=== PATIENT | male | born 1990 | race Caucasian/White ===

== ENCOUNTER 2020-09-23 14:59 | Emergency (ER) | payer SELFPAY ==
[~2020-09-23] VITALS: Ht 188 cm; Wt 74.8 kg
[2020-09-23 15:11] VITALS: BP 130/74
--- NOTE | 2020-09-23 15:13 | Emergency Room Report ---
History of Present Illness General Chief Complaint: Medical Clearance Source: Patient Present Illness HPI 30-year-old male with no known significant past medical history of anxiety reporting that he uses marijuana on daily basis brought in by [facility] for medical clearance. Patient was tased on the right sided anterior chest once and had already removed taser. Denies any pain, shortness of breath, headache and dizziness at this time. Patient refuses any wound care, tetanus shot, her chest x-ray is reported that he does not want to be exposed to radiation normal does he want to be medically evaluated as he is in no pain. Patient reported that he only has history of anxiety and is managed with using marijuana denies any SI and HI. Patient in no distress. Denies all URI symptoms. Denies any fall or injury, denies loss of consciousness. 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 Patient History Past Medical History: see triage record Past Surgical History: none Pertinent Family History: none Immunizations: UTD Reviewed Nursing Documentation: PMH: Agreed; PSxH: Agreed Nursing Documentation-PMH Past Medical History: No History, Except For History Of Psychiatric Problem: Yes Review of Systems All Other Systems: negative except mentioned in HPI Physical Exam Vital Signs Date Time Temp Pulse Resp B/P (MAP) Pulse Ox O2 Delivery O2 Flow Rate FiO2 09/23/20 15:05 98.2 99 16 130/74 (92) 99 Room Air Sp02 EP Interpretation: reviewed, normal General Appearance: no apparent distress, alert, GCS 15, non-toxic Head: normocephalic, atraumatic Eyes: bilateral eye normal inspection, bilateral eye PERRL ENT: hearing grossly normal, normal pharynx, no angioedema, normal voice Neck: full range of motion, supple/symm/no masses Respiratory: chest non-tender, lungs clear, normal breath sounds, speaking full sentences Cardiovascular #1: regular rate, rhythm, no edema Cardiovascular #2: 2+ carotid (R), 2+ carotid (L), 2+ radial (R), 2+ radial (L), 2+ dorsalis pedis (R), 2+ dorsalis pedis (L) Gastrointestinal: normal bowel sounds, non tender, soft, non-distended, no guarding, no rebound Rectal: deferred Genitourinary: no CVA tenderness Musculoskeletal: back normal, no calf tenderness, other - small puncture wound right sided front chest, not bleeding, no pus drainage. Neurologic: alert, motor strength/tone normal, oriented x3, sensory intact, responsive, speech normal Psychiatric: judgement/insight normal, memory normal, mood/affect normal, no suicidal/homicidal ideation Skin: normal color Lymphatic: no adenopathy Medical Decision Making PA Attestation All my diagnosis and treatment plans were reviewed ad discussed with my supervising physician Dr. Capps Diagnostic Impression: Primary Impression: Medical clearance for incarceration Additional Impression: Taser injury ER Course 30-year-old male with no known significant past medical history of anxiety reporting that he uses marijuana on daily basis brought in by [employer] [facility] for medical clearance. Patient was tased on the right sided anterior chest once and had already removed taser. Denies any pain, shortness of breath, headache and dizziness at this time. Patient refuses any wound care, tetanus shot, her chest x-ray is reported that he does not want to be exposed to radiation normal does he want to be medically evaluated as he is in no pain. Patient reported that he only has history of anxiety and is managed with using marijuana denies any SI and HI. Patient in no distress. Denies all URI symptoms. Denies any fall or injury, denies loss of consciousness. Ddx considered but are not limited to: Infected aberration, superficial abrasion noninfected, laceration, cellulitis Vital signs: are WNL, pt. is afebrile H&PE are most consistent with: Medical clearance for incarceration, taser injury ORders: Chest x-ray which patient declined ED INTERVENTIONS: None as patient did not want any medical evaluation and treatment DISCHARGE: At this time pt. is stable for d/c to home. Will provide printed pa tient care instructions, and any necessary prescriptions. Care plan and follow up instructions have been discussed with the patient prior to discharge. Patient to be discharged to law enforcement, patient undergoing medical evaluation at this time and has full judgment in making this decision. Advised patient to return to emergency room if worsening symptoms. Last Vital Signs Date Time Temp Pulse Resp B/P (MAP) Pulse Ox O2 Delivery O2 Flow Rate FiO2 09/23/20 15:05 98.2 99 16 130/74 (92) 99 Room Air Disposition: LAW ENFORCEMENT IN CUST Condition: Stable Patient Instructions: Abrasion, [id number] Additional Instructions: Patient refused any medical management, tetanus shot, wound care, chest x-ray, etc. is in no pain and just wants to be discharged. Patient has full judgment making his decisions. Advised patient return to the emergency room if worsening symptoms. Stephan Stewart Sep 23, 2020 15:13
[2020-09-23 15:15] VITALS: BP 130/74
== END 2020-09-23 15:20 ==
LOC: EMR 15:18
DX: S21.131A Puncture wound without foreign body of right front wall of thorax without penetration into thoracic cavity, initial encounter (principal); Y35.403A Legal intervention involving unspecified sharp objects, suspect injured, initial encounter; Y92.9 Unspecified place or not applicable; F41.9 Anxiety disorder, unspecified; F12.90 Cannabis use, unspecified, uncomplicated
CPT/HCPCS: 99281